=== PATIENT | female | born 1955 | race African-American/Black ===

== ENCOUNTER 2016-07-08 08:55 | Day surgery (SDC) | payer OTHER ==
[~2016-07-08] VITALS: Ht 154.9 cm; Wt 94.3 kg
[~2016-07-08 08:55] MED LIST: GLUCOPHAGE500 MG/TAB PO; HCTZ 25MG TAB25 MG PO; NASONEX SPRAY17 GM NS; OMEGA 31000 MG PO; VITAMIN D31000 I1 PO
[2016-07-08] MEDS ORDERED: MUCINEX 60600 MG/TA1 PO (09:20)
[2016-07-08] MEDS ORDERED: REFRESH PLUS 00.4 M1 OP (09:20)
[2016-07-08] MEDS ORDERED: ASPIRIN E.C. 8181 MG PO (09:21)
[2016-07-08] MEDS ORDERED: ZOCOR 10MG10 MG PO (09:22)
[2016-07-08] MEDS ORDERED: ZYRTEC 10MG10 MG PO (09:22)
[2016-07-08] MEDS ORDERED: CALCIUM 600MG+D1 TAB PO (09:23)
[2016-07-08] MEDS ORDERED: SYNTHROID0.1 MG/TAB PO (09:23)
[2016-07-08 09:42] VITALS: BP 148/90; PULSE 84; TEMP 98
[2016-07-08 10:36] VITALS: BP 148/90; PULSE 98; TEMP 97.8
[2016-07-08 10:55] VITALS: BP 140/72; PULSE 84
[2016-07-08 11:20] VITALS: BP 131/83; PULSE 94
[2016-07-08 11:35] VITALS: BP 124/74; PULSE 80
[2016-07-08 13:27] VITALS: BP 125/76; PULSE 87
== END 2016-07-08 11:45 | disposition home or self-care (01) ==
LOC: SDCO 08:55
DX: Z12.11 Encounter for screening for malignant neoplasm of colon (principal); K57.30 Diverticulosis of large intestine without perforation or abscess without bleeding; E11.9 Type 2 diabetes mellitus without complications; I10 Essential (primary) hypertension; E78.00 Pure hypercholesterolemia, unspecified; K58.9 Irritable bowel syndrome, unspecified; M81.0 Age-related osteoporosis without current pathological fracture; E07.9 Disorder of thyroid, unspecified; M19.90 Unspecified osteoarthritis, unspecified site; Z79.899 Other long term (current) drug therapy
CPT/HCPCS: J2250; J3010; J7030